=== PATIENT | male | born 1945 | race Caucasian/White ===

== ENCOUNTER → 2018-04-12 12:31 | Outpatient (CLI) | payer MEDICARE, OTHER, SELFPAY ==
--- NOTE | 2018-04-12 | DI.ECHO.S_ITS ---
[place] [facility]+ [facility] +---------+ : : [address] : : : : [id number] : : : : Phone: [phone]+ Echocardiogram Report + + :Name: KENY MONROE Study Date: 04/12/2018 Height: 70 in : :[facility] Exam Location: [facility] Weight: 220 lb : : Gender: Male BSA: 2.2 m2 : :: 1945 Age: 72 yrs BP: 132/80 mmHg: :Reason For Study: SVT : :Ordering Physician: Dr. Barclay : :Royal Performed By: Rachelle Mcrae : :Referring: JASEN GARCIA : + + Interpretation Summary Severe sinus bradycardia. Heart rate is 41-46 bpm. Normal LV size, wall thickness, wall motion and LV systolic function. EF is 60-65%. Severe left atrial enlargement; moderate RA enlargement. Mild MAC; otherwise no significant valvular abnormalities. Compared to prior study 10/31/2015 no significant changes have occurred. Procedure: A two-dimensional transthoracic echocardiogram with color flow and Doppler was performed. The study quality was technically good. Comparison is made with the echocardiogram of 10/31/15. The patient was in sinus bradycardia with heart rates between 42 and 50 bpm during the exam. Left Ventricle: The left ventricle is normal in size, wall thickness, and systolic function without any focal wall motion abnormalities. The ejection fraction is estimated to be 60-65%. Diastolic parameters suggest probable normal left ventricular diastolic function and normal filling pressures. Right Ventricle: The right ventricle is borderline dilated. The right ventricular systolic function is normal. Atria: The left atrium is severely dilated. The right atrium is severely dilated. There is no Doppler evidence for an interatrial shunt. Mitral Valve: The mitral valve leaflets appear borderline thickened, but open well. There is mild mitral annular calcification. There is mild mitral regurgitation. Aortic Valve: The aortic valve is trileaflet. There is mild aortic valve sclerosis. The aortic valve opens well. There is trace aortic regurgitation. Tricuspid Valve: The tricuspid valve is normal. There is mild tricuspid regurgitation. The right ventricular systolic pressure is estimated to be at least 29 mmHg based on an estimated right atrial pressure of 3 mm Hg. Pulmonic Valve: The pulmonic valve leaflets are thin and pliable; valve motion is normal. There is mild pulmonic regurgitation. Great Vessels: The aortic root is normal size. The ascending aorta is at the upper limits of normal in size. The aortic arch is at the upper limits of normal in size. The pulmonary artery is normal size. The IVC is of normal diameter and collapses greater than 50% with a sniff. This suggests a low right atrial pressure of 3 mm Hg. Pericardium/ Pleura There is no pericardial effusion. There is no pleural effusion. MMode/2D Measurements & Calculations LVIDd: 5.7 cm LVOT diam: 2.2 cm LVIDs: 2.7 cm Ao root diam: 3.6 cm FS: 52.9 % asc Aorta Diam: 3.6 cm EPSS: 0.28 cm Ao Arch Diam (Prox Trans): 3.3 cm IVSd: 0.86 cm LVPWd: 1.0 cm LV myles. diameter/BSA (cm/m^2): 2.6 LV sys. diameter/BSA (cm/m^2): 1.2 LA A2 area: 33.0 cm2 RA long axis: 6.5 cm LA A4 area: 35.0 cm2 RA area: 30.2 cm2 LA length (vol): 7.4 cm RA vol: 118.2 ml LA vol: 132.7 ml RA : 54.4 ml/m2 LA vol index: 61.0 ml/m2 IVC diam: 1.6 cm RVD1 (basal): 4.5 cm RVD2 (mid): 3.7 cm TAPSE: 3.3 cm Doppler Measurements & Calculations Ao V2 max: 163.0 cm/sec LVOT Max Patric: 131.2 cm/sec Ao V2 mean: 116.5 cm/sec LV V1 max P.9 mmHg Ao max P.6 mmHg LV V1 VTI: 33.5 cm Ao mean P.9 mmHg CATIA(I,D): 2.9 cm2 Ao V2 VTI: 41.4 cm CATIA(V,D): 2.9 cm2 sev ratio: 0.81 CATIA indexed to BSA (cm^2/m^2): 1.4 MV E max patric: 92.5 cm/sec TR max patric: 253.7 cm/sec MV A max patric: 71.0 cm/sec TR max P.7 mmHg MV E/A: 1.3 PA V2 max: 60.7 cm/sec Med Peak E' Patric: 5.3 cm/sec PA V2 mean: 47.3 cm/sec E/E' med: 17.6 PA mean P.96 mmHg Lat Peak E' Patric: 8.5 cm/sec PA pr(Accel): 35.7 mmHg E/E' lat: 10.9 E/e' average: 14.2 MV dec time: 0.18 sec SVLVOT): 121.7 ml Reading Physician:09:19 PM
== END ==
PROVIDERS: PCP Internal Medicine; Visit Provider Internal Medicine
DX: I08.1 Rheumatic disorders of both mitral and tricuspid valves (principal); I47.1 Supraventricular tachycardia; I48.92 Unspecified atrial flutter; R00.1 Bradycardia, unspecified
CPT/HCPCS: 93306

== ENCOUNTER → 2018-10-06 11:05 | Outpatient (CLI) | payer MEDICARE, OTHER, SELFPAY ==
--- NOTE | 2018-10-06 | DI.RAD.S_ITS ---
PROCEDURE: XR CHEST 2V INDICATIONS: COUGH TECHNIQUE: 2 views of the chest were acquired. COMPARISON: None. FINDINGS: Surgical changes and devices: None. Lungs and pleura: Left basilar opacity may be infiltrate, scar or atelectasis. No pleural effusions or pneumothorax. Mediastinum: Mediastinal contours are normal. Heart size is normal. Bones and chest wall: No suspicious bony abnormalities. Soft tissues appear unremarkable. IMPRESSION: Left basilar opacity may be pneumonia, scar or atelectasis. Recommend short interval followup chest x-ray to ensure resolution. If persists on followup x-ray, chest CT is suggested to rule out superimposed mass. Dictated by: Ramos Fry M.D. on 10/06/2018 at 14:16 Approved by: Ramos Fry M.D. on 10/06/2018 at 14:17
== END ==
PROVIDERS: PCP Internal Medicine; Visit Provider Internal Medicine
DX: R05 Cough (principal)
CPT/HCPCS: 71046

== ENCOUNTER → 2019-01-06 15:20 | Outpatient (CLI) | payer MEDICARE, OTHER, SELFPAY ==
--- NOTE | 2019-01-06 | DI.RAD.S_ITS ---
PROCEDURE: XR CHEST 2V INDICATIONS: PNEUMONIA TECHNIQUE: 2 views of the chest were acquired. COMPARISON: [facility], CR, XR CHEST 2V, 10/06/2018, 11:12. FINDINGS: Surgical changes and devices: None. Lungs and pleura: Lungs are abnormal with a chronic interstitial prominence unchanged over the prior 3 months. No pleural effusions or pneumothorax. Mediastinum: Mediastinal contours are normal. Heart size is normal. Bones and chest wall: No suspicious bony abnormalities. Soft tissues appear unremarkable. IMPRESSION: Chronic interstitial prominence, but no focal consolidative pneumonia is found. The appearance is little if any changed from the comparison plain film 10/06/18. Dictated by: Grover Martin M.D. on 01/06/2019 at 16:50 Approved by: Grover Martin M.D. on 01/06/2019 at 16:51
== END ==
PROVIDERS: PCP Internal Medicine; Visit Provider Internal Medicine
DX: J18.9 Pneumonia, unspecified organism (principal)
CPT/HCPCS: 71046